=== PATIENT | male | born 1985 | race Caucasian/White ===

== ENCOUNTER 2022-03-26 14:48 | Outpatient (CLI) | payer BC | END 2022-03-26 14:49 | disposition home or self-care (01) | LOC: ULT 14:48 | PROVIDERS: ATTEND Family Medicine | DX: N50.89 Other specified disorders of the male genital organs (principal) | CPT/HCPCS: 76870; 93976 ==

== ENCOUNTER 2022-05-15 11:34 | Outpatient (CLI) | payer BC ==
[2022-05-15] MEDS ORDERED: Iopamidol 370 76% 100 ML VIAL ONE (14:05)
== END 2022-05-15 11:35 | disposition home or self-care (01) ==
LOC: CT 11:34
PROVIDERS: ATTEND Urology
DX: N50.89 Other specified disorders of the male genital organs (principal)
CPT/HCPCS: 74178; Q9967

== ENCOUNTER 2022-06-13 07:45 | Outpatient (CLI) | payer BC ==
[2022-06-13 10:58] LABS: Anion Gap 15 mmol/L (10-20); BUN (Urea Nitrogen) 9 mg/dL (8.9-20.6); Calc. Creatinine Clearance 0 mL/min (70-130); Calcium 9.3 mg/dL (7.8-10.44); Carbon Dioxide 27 mmol/L (22-29); Chloride 100 mmol/L (98-107); Estimated GFR 116; Glucose 90 mg/dL (70-105); Sodium 137 mmol/L (136-145)
[2022-06-13 11:00] LABS: Hemoglobin 13.6 g/dL (13.5-17.5); INR-International Normal Ratio 0.9; Mean Corpuscular HGB CONC 35.1 g/dL (32.0-36.0); Mean Corpuscular Volume 88.4 fl (81.2-95.1); Mean Platelet Volume 9.4 fl (7.4-10.4); PTT 29.2 sec (22.0-33.0); Platelet Count 264 10x3/uL (150-450); Prothrombin Time 10.3 sec (9.5-12.1); RBC Distribution Width 12.1 % (11.5-14.5); Red Blood Cell (RBC) Count 4.39 10x6/uL (4.32-5.72)
[2022-06-13 11:02] LABS: Bilirubin Neg (Negative); Blood, Urine 10 (Negative); Clarity Clear (Clear); Glucose, Urine (Dipstick) Normal (Negative); Ketone, Urine Negative (Negative); Leukocyte Negative (Negative); Nitrite Negative (Negative); Protein, Urine (Dipstick) Negative (Neg-Trace); Urobilinogen Normal mg/dL (Less than 2)
[2022-06-13 11:25] LABS: Bacteria/HPF None Seen HPF (None Seen); RBC/HPF 0-3 HPF (0-3); Squamous Epithelial 0-3 HPF (0-3); WBC/HPF 0-3 HPF (0-3)
== END 2022-06-13 07:46 | disposition home or self-care (01) ==
LOC: LABBT 07:45
PROVIDERS: ATTEND Urology
DX: Z01.812 Encounter for preprocedural laboratory examination (principal); N50.89 Other specified disorders of the male genital organs; N43.3 Hydrocele, unspecified; R35.0 Frequency of micturition; N28.1 Cyst of kidney, acquired; Z20.822 Contact with and (suspected) exposure to COVID-19
CPT/HCPCS: 80048; 81001; 85027; 85610; 85730; 87086; 87811

== ENCOUNTER 2022-06-17 06:00 | Day surgery (SDC) | payer BC ==
[2022-06-13 11:49] VITALS: BMI 25.0
[2022-06-17] MEDS ORDERED: Famotidine/PF 20 mg/2ml Vial ONE (06:35)
[2022-06-17] MEDS ORDERED: Meperidine HCl/PF 25 MG/ML VIAL ONE (06:35)
[2022-06-17] MEDS ORDERED: SUGAMMADEX SODIUM 200 MG/2 ML VIAL ONE (06:35)
[2022-06-17] MEDS ORDERED: fentaNYL Citrate/PF 100 MCG/2 ML SYRINGE ONE (06:35)
[2022-06-17] MEDS ORDERED: Bacitracin Zinc Ointment 30 gm TUBE ONE (07:01)
[2022-06-17] MEDS ORDERED: Bupivacaine 0.25% HCL 30 ML VIAL ONE (07:01)
[2022-06-17] MEDS ORDERED: Levofloxacin 500 mg/D5W 100 ml Premix Bag ONE (07:20)
[2022-06-17] MEDS ORDERED: Midazolam HCl 2 mg/2 ml Vial ONE (07:21)
[2022-06-17] MEDS ORDERED: Lidocaine 1% MPF 2 ML VIAL ONE (07:29)
[2022-06-17] MEDS ORDERED: Ondansetron PF 4 MG/2 ML Vial ONE (07:29)
[2022-06-17] MEDS ORDERED: PROPOFOL 200 MG/20 ML VIAL ONE (07:29)
[2022-06-17] MEDS ORDERED: Metoclopramide HCl 10 MG/2 ML VIAL ONE (07:29)
[2022-06-17] MEDS ORDERED: Dexamethasone 20 MG/5 ML VIAL ONE (07:29)
[2022-06-17] MEDS ORDERED: Ketorolac Tromethamine 30 MG/ML VIAL ONE (07:29)
[2022-06-17] MEDS ORDERED: Neomycin-Polymyxin 1 ML AMP ONE (08:07)
[2022-06-17] MEDS ORDERED: Fentanyl 100 MCG/2 ML VIAL ONE ×2 (08:49→09:11)
== END 2022-06-17 11:25 | disposition home or self-care (01) ==
LOC: SDC 06:00
PROVIDERS: ATTEND Urology
PROC: 0VB50ZZ Excision of Scrotum, Open Approach (ICD-10-PCS; principal; 2022-06-17)
DX: N50.89 Other specified disorders of the male genital organs (principal); K21.9 Gastro-esophageal reflux disease without esophagitis; N52.9 Male erectile dysfunction, unspecified; Z79.899 Other long term (current) drug therapy; Z88.1 Allergy status to other antibiotic agents; Z98.52 Vasectomy status
CPT/HCPCS: 88304; 88305; 88331; 88341; 88342; J1100; J1885; J1956; J2175; J2250; J2405; J2704; J2765; J3010; S0020; S0028